=== PATIENT | female | born 1945 | race Caucasian/White ===

== ENCOUNTER → 2016-09-15 | Outpatient (CLI) | payer MEDICARE, OTHER ==
[~2016-09-15] MED LIST: ASPI325T PO; CELE200C PO; CENTTAB PO; HYDR-3580 PO; LEVO.125 PO; MAGN1TAB14 PO
[2016-09-15 09:55] LABS: HEMATOCRIT 40.1 % (35.0-46.0); MEAN CELL VOLUME 85.9 FL (80.0-100.0); MEAN CORPUSCULAR HEMOGLOBIN 29.3 PG (27.0-34.0); MEAN CORPUSCULAR HGB CONC 34.2 % (32.0-36.0); PLATELET COUNT 242 TH/MM3 (150-450); RED BLOOD COUNT 4.67 MIL/MM3 (4.00-5.30); RED CELL DISTRIBUTION WIDTH 13.5 % (11.6-17.2); REVIEW FLAG FINAL; WHITE BLOOD COUNT 5.3 TH/MM3 (4.0-11.0)
[2016-09-15 10:00] LABS: BLOOD, URINE NEG (NEG); GLUCOSE,URINE NEG (NEG); KETONE, URINE NEG (NEG); NITRITE,URINE NEG (NEG); URINE COLOR COLORLESS (YELLW/STRAW)
[2016-09-15 10:07] LABS: INTERNATIONAL NORMALIZED RATIO 0.9 RATIO; PROTHROMBIN TIME - PATIENT 10.1 SEC (9.8-11.6)
[2016-09-15 10:14] LABS: BICARBONATE 27.7 MEQ/L (21.0-32.0); POTASSIUM 4.3 MEQ/L (3.5-5.1)
[2016-09-15 10:17] LABS: COMMENT (UR) CULT NOT INDICATED; CULTURE IF INDICATED CULT NOT INDICATED
--- NOTE | 2016-09-15 18:53 | EKG ---
Date Performed: 09/15/2016 Time Performed: 08:51:49 PTAGE: 71 years EKG: Sinus rhythm Incomplete RBBB NO PREVIOUS TRACING DOCTOR: Krishna Darling Interpretating Date/Time 09/15/2016 18:52:15
== END ==
LOC: CPRE 08:18
PROVIDERS: ATTEND Orthopaedic Surgery
DX: Z01.810 Encounter for preprocedural cardiovascular examination (principal); Z01.812 Encounter for preprocedural laboratory examination; M17.12 Unilateral primary osteoarthritis, left knee; I10 Essential (primary) hypertension; M79.609 Pain in unspecified limb; I45.10 Unspecified right bundle-branch block
CPT/HCPCS: 36415; 80048; 81001; 85027; 85610; 85730; 93005

== ENCOUNTER 2016-09-22 14:24 | Inpatient (IN) | payer MEDICARE, OTHER ==
[~2016-09-22] VITALS: Ht 165.1 cm; Wt 68.5 kg
[~2016-09-22 14:24] MED LIST changes: -HYDR-3580 PO
[2016-09-25 05:48] VITALS: BP 144/95; PULSE 96; RESP 20; TEMP 98.1; O2SAT 99
[2016-09-25] MEDS ORDERED: EXPAREL PERI-ARTICULAR INJECTION (TOTAL VOL. 100 ML) P-ARTICULR SCH ×2 (06:00)
[2016-09-25] MEDS: CHLORHEXIDINE GLUCONATE 4% SOLN 120 ML BTL TOP SCH (06:00)
[2016-09-25] MEDS: SODIUM CHLORID 0.9% 500 ML IV SCH ×2 (06:00→22:40)
[2016-09-25] MEDS ORDERED: METOPROLOL TARTRATE 25 MG TAB PO PRN ×2 (06:00→11:00)
[2016-09-25] MEDS ORDERED: LACTATED RINGER'S 1000 ML IV SCH ×2 (06:00→09:26)
[2016-09-25] MEDS ORDERED: INSULIN HUMAN REGULAR 1,000 UNITS/10 ML VIAL SQ PRN ×2 (06:00→11:00)
[2016-09-25] MEDS ORDERED: POVIDONE IODINE 5% (ANTISEPSIS KIT) 4 APPLICATIONS EACH NARE ONE (06:00)
[2016-09-25] MEDS: TRANEXAMIC ACID INJ 685 MG in SODIUM CHLORIDE 0.9% INJ 100 ML IV SCH ×2 (06:00→07:01)
[2016-09-25] MEDS ORDERED: CHLORHEXIDINE GLUCONATE 2 % 1 PACK (2 CLOTHS) TOP ONE (06:00)
[2016-09-25] MEDS ORDERED: ceFAZolin 2 GM PREMIX 50 ML IV SCH (06:00)
[2016-09-25] MEDS ORDERED: GENTAMICIN SULFATE 80 MG/2 ML VIAL ONE (06:11)
[2016-09-25] MEDS ORDERED: MIDAZOLAM HCL 5 MG/5 ML VIAL ONE (06:21)
[2016-09-25] MEDS ORDERED: DEXAMETHASONE SOD PHOS 4 MG/ML VIAL ONE ×2 (06:30→06:45)
[2016-09-25] MEDS ORDERED: FAMOTIDINE 20 MG/2 ML VIAL ONE ×2 (06:31→06:45)
[2016-09-25] MEDS ORDERED: ACETAMINOPHEN 1000 MG/100 ML VIAL IV ONE (06:45)
[2016-09-25] MEDS ORDERED: fentaNYL CITRATE 250 MCG/5 ML AMP ONE (06:45)
[2016-09-25] MEDS ORDERED: BUPIVACAINE HCL PF 0.5% 30 ML VIAL NB ONE (09:06)
[2016-09-25] MEDS: LACTATED RINGER'S 1000 ML INJ 1,000 ML IV SCH ×2 (09:08→21:38)
[2016-09-25] MEDS ORDERED: ACETAMINOPHEN/HYDROcodone 325 MG/7.5 MG TAB PO PRN (09:15)
[2016-09-25] MEDS ORDERED: TRANEXAMIC ACID INJ 0 MG in SODIUM CHLORIDE 0.9% INJ 100 ML IV SCH (09:15)
[2016-09-25] MEDS ORDERED: MAGNESIUM HYDROXIDE SUSP 30 ML CUP PO PRN (09:15)
[2016-09-25] MEDS ORDERED: SODIUM CHLORIDE 0.9% FLUSH 5 ML FLUSH IVF PRN (09:15)
[2016-09-25] MEDS ORDERED: Post-op Orders (for Pharmacy) MISC XX ONE (09:15)
[2016-09-25] MEDS ORDERED: ONDANSETRON HCL 4 MG/2 ML VIAL IVP PRN (09:15)
[2016-09-25] MEDS ORDERED: SODIUM CHLORID 0.9% 500 ML IV SCH (09:26)
[2016-09-25] MEDS ORDERED: DO NOT ADM ANY ANTICOAGULANT DRUGS XX PRN (09:52)
--- NOTE | 2016-09-25 09:58 | HHI.FF ---
Face to Face Verification Diagnosis: (1) Status post total left knee replacement Physical Therapy Gait training Knee: Total knee, Protocol: Left, Gait training, Full weight bearing Left LE Weight Bearing: WB as tolerated Left LE Range of Motion: Active ROM Additional Instructions AROM, AAROM, PROM, PRE. ROM goal is 0 t0 135 degrees. ROM in the OR was 0 t0 145 degrees. Nursing Nursing: Dressing changes Dressing Changes: Daily dressing change, Coverderm/Primapore Additional Instructions Remove steristrips on postop day 14. I have seen patient Emeli Arreaga on 09/25/16. My clinical findings support the need for the requested home health care services because: Ltd mobility - disease progression Limited ability to care for self High risk of falls I certify that my clinical findings support that this patient is homebound because: Post-op weakness Unsteady gait/balance Unsafe to leave home unassisted Estela Duran MD (Charles) Sep 25, 2016 09:58
[2016-09-25] MEDS ORDERED: TRANEXAMIC ACID INJ 685 MG in SODIUM CHLORIDE 0.9% INJ 100 ML IV SCH (10:00)
[2016-09-25] MEDS ORDERED: *morphine SULFATE 8 MG/ML PERIprocedure ONLY ONE ×2 (10:21→10:35)
[2016-09-25] MEDS ORDERED: MORPHINE SULFATE 4 MG/ML INJ IV PUSH PRN (11:00)
[2016-09-25 12:00] VITALS: BP 109/64; PULSE 84; RESP 16; TEMP 95.1; O2SAT 97
[2016-09-25] MEDS ORDERED: PROPOFOL 200 MG/20 ML AMP IV ONE (12:00)
[2016-09-25] MEDS ORDERED: LACTATED RINGER'S 1000 ML INJ 1,000 ML IV ONE (12:00)
[2016-09-25] MEDS ORDERED: ONDANSETRON HCL 4 MG/2 ML VIAL IV PUSH ONE (12:00)
[2016-09-25] MEDS ORDERED: ePHEDrine/NS 25 MG/5 ML SYR IV ONE (12:00)
[2016-09-25] MEDS ORDERED: PHENYLEPH/NS 1000 MCG/10 ML SYR IV ONE (12:00)
[2016-09-25] MEDS ORDERED: CELECOXIB 200 MG CAP PO PRN (12:00)
--- NOTE | 2016-09-25 12:14 | PD.CONS ---
[facility] By Doctor Simone Duran Reason for Consult Medical Management Primary Care Physician Charles Siddiqui MD Diagnoses: History of Present Illness This is a pleasant 71 y/o Female with Hypothyroidism she states do not have any other pathology status post Left Total knee arthroplasty, no pain at this time. states she has bilateral knee OA had Physical Therapy and injections without improvement, scheduled two years ago for Right total knee arthroplasty and no this opportunity for Left Total knee arthroplasty. no complaint no nausea, vomit or diarrhea. Past Family Social History Allergies: Coded Allergies: No Known Allergies (Unverified , 09/25/16) Past Medical History Hypothyroidism OA of both knees. Past Surgical History Right total Knee arthroplasty Left total knee arthroplasty. Reported Medications Reported Meds & Active Scripts Active Reported Aspirin 325 Mg Tab 325 Mg PO DAILY Synthroid (Levothyroxine Sodium) 125 Mcg Tab 125 Mcg PO DAILY Celebrex (Celecoxib) 200 Mg Cap 200 Mg PO DAILY PRN Centrum Silver (Multiple Vitamins W/ Minerals) 1 Tab 1 Tab PO DAILY Magnesium 400 Mg Tab 400 Mg PO DAILY Active Ordered Medications Current Medications Medications (Trade) Dose Ordered Sig/Swathi Route Start Time Stop Time Status Last Admin Chlorhexidine Gluconate 1 applic 1 applic ONCE TOP 09/25/16 06:00 09/28/16 05:59 Tranexamic Acid 685 mg/Sodium Chloride 106.85 ml @ 200 mls/ hr ONCE IV 09/25/16 06:00 09/26/16 05:59 09/25/16 07:01 Tranexamic Acid 685 mg/Sodium Chloride 106.85 ml @ 200 mls/ hr ONCE IV 09/25/16 10:00 09/26/16 09:59 09/25/16 10:00 Bupivacaine Liposome 20 ml/ Sodium Chloride 100 ml @ 200 mls/hr ONCE P-ARTICULR 09/25/16 06:00 09/26/16 05:59 Lactated Ringer's 1,000 ml @ 30 mls/hr Q24H IV 09/25/16 06:00 09/25/16 05:45 Sodium Chloride 500 ml @ 30 mls/hr [id number] IV 09/25/16 06:00 09/26/16 05:59 (Lr 1000 ml Inj) 1,000 ml @ 80 mls/hr [id number] IV 09/25/16 09:08 09/25/16 09:08 (NS Flush) 2 ml UNSCH PRN IVF 09/25/16 09:15 IV Flush 2 ml 2 ml BID IVF 09/25/16 21:00 (Ancef Inj/NS Inj) 100 ml @ 200 mls/hr Q6H IV 09/25/16 14:00 09/26/16 02:29 (Morphine Inj) 4 mg Q3H PRN IV PUSH 09/25/16 11:00 ([place] 7.5-325 Mg) 1 tab Q4H PRN PO 09/25/16 09:15 ([place] 7.5-325 Mg) 2 tab Q4H PRN PO 09/25/16 09:15 (Toradol Inj) 15 mg Q6H IVP 09/25/16 12:00 09/27/16 06:01 (Zofran Inj) 4 mg Q6H PRN IVP 09/25/16 09:15 (Colace) 100 mg BID PO 09/26/16 21:00 (Ambien) 5 mg HS PRN PO 09/25/16 09:15 (Milk Of Magnmerly Liq) 30 ml DAILY PRN PO 09/25/16 09:15 (Aspirin) 325 mg DAILY PO 09/26/16 09:00 (CeleBREX) 200 mg DAILY PRN PO 09/25/16 12:00 Hold (Synthroid) 125 mcg DAILY@0600 PO 09/26/16 06:00 (Theragran Hematinic) 1 tab DAILY PO 09/26/16 09:00 (Mag-Ox) 400 mg DAILY@11 PO 09/26/16 11:00 Miscellaneous Information ALL NURSING DEPARTME... UNSCH PRN XX 09/25/16 09:52 09/26/16 09:51 Family History Father with Colon Cancer Mother with Bone Cancer Brother with Leukemia Social History Lives with her , do not Smoke but drinks wine daily. Physical Exam Vital Signs Vital Signs Date Time Temp Pulse Resp B/P Pulse Ox O2 Delivery O2 Flow Rate FiO2 09/25/16 10:45 97.8 82 15 116/63 97 Room Air 09/25/16 10:30 80 15 128/69 97 Room Air 09/25/16 10:15 77 15 137/70 97 Nasal Cannula 2 09/25/16 10:00 79 15 120/75 97 Nasal Cannula 2 09/25/16 09:45 93 15 122/69 96 Nasal Cannula 2 09/25/16 09:30 97.6 93 15 111/72 96 Nasal Cannula 2 09/25/16 06:05 99 Nasal Cannula 3 09/25/16 05:48 98.1 96 20 144/95 99 Physical Exam GENERAL: This is a well-nourished, well-developed patient, in no apparent distress. SKIN: No rashes, ecchymoses or lesions. Cool and dry. HEAD: Atraumatic. Normocephalic. No temporal or scalp tenderness. EYES: Pupils equal round and reactive. Extraocular motions intact. No scleral icterus. No injection or drainage. ENT: Nose without bleeding, purulent drainage or septal hematoma. Throat without erythema, tonsillar hypertrophy or exudate. Uvula midline. Airway patent. NECK: Trachea midline. No JVD or lymphadenopathy. Supple, nontender, no meningeal signs. CARDIOVASCULAR: Regular rate and rhythm without murmurs, gallops, or rubs. RESPIRATORY: Clear to auscultation. Breath sounds equal bilaterally. No wheezes , rales, or rhonchi. GASTROINTESTINAL: Abdomen soft, non-tender, nondistended. No hepato-splenomegaly , or palpable masses. No guarding. MUSCULOSKELETAL: Left Knee with Orthotics and Hemovac in place. NEUROLOGICAL: Awake and alert. Cranial nerves II through XII intact. Motor and sensory grossly within normal limits. Five out of 5 muscle strength in all muscle groups. Normal speech. Laboratory Laboratory Tests Test 09/25/16 05:50 Blood Type O NEGATIVE Antibody Screen NEGATIVE Blood Bank Comment Imaging No Imaging studies taken. Assessment and Plan Assessment and Plan 1. Hypothyroidism continue Hormonal replacement 2. End stage OA on both knees status post Left Total knee Arthroplasty, continue Pain medicine, [facility] for discharge. PT following 3. Right Total knee arthroplasty history of 2 years ago. DVT prophylaxis as per Orthopedic Surgery Code Status Full Code Discussed Condition With Patient and nurse in the room. Velasquez Rock MD Sep 25, 2016 12:14
[2016-09-25] MEDS: KETOROLAC TROMETHAMINE 30 MG/ML (IVP) VIAL IVP SCH ×3 (13:48→21:42)
[2016-09-25 14:25] VITALS: O2SAT 97
[2016-09-25] MEDS: MAGNESIUM HYDROXIDE SUSP 30 ML CUP PO SCH ×2 (15:50→21:00)
[2016-09-25 16:00] VITALS: BP 97/57; PULSE 78; RESP 16; TEMP 95.4; O2SAT 98
--- NOTE | 2016-09-25 16:15 | RADRPT ---
EXAM DATE/TIME: 09/25/2016 10:04 [place] COMPARISON: No previous studies available for comparison. INDICATIONS : Left knee post operative. MEDICAL HISTORY : None. SURGICAL HISTORY : None. Left knee replacement. ENCOUNTER: Initial ACUITY: 1 day PAIN SCORE: Non-responsive. LOCATION: Left knee FINDINGS: Two view examination of the left knee demonstrates a total knee arthroplasty. All 3 components are ap propriately positioned. No fracture. Suprapatellar drain is in place. CONCLUSION: Appropriate postoperative appearance of the left knee status post total arthroplasty. Derrell Cherry MD on September 25, 2016 at 16:13 Board Certified Radiologist. This report was verified electronically.
--- NOTE | 2016-09-25 16:19 | MP ---
cc: Isma COSTA. DATE OF SURGERY: 09/25/2016 PREOPERATIVE DIAGNOSIS Primary osteoarthritis, left knee. POSTOPERATIVE DIAGNOSIS Primary osteoarthritis, left knee. OPERATION PERFORMED Left total knee arthroplasty with [place] triathlon prosthesis. SURGEON Estela Costa MD [employer] Derrick Lees, CSFA ANESTHESIA Spinal with supplemental adductor canal block and local with Exparel. INDICATIONS AND FINDINGS This 71-year-old woman has had over 1 year of progressive worsening of left knee pain that has limited her such that her ambulation tolerance has gone from miles to about 1000 yards. She has stiffness in the joint and pain on motion. She has swelling. She has difficulty ascending and descending stairs as well as standing from a seated position and vice versa. She has pain when sitting for any length of time. Treatment has included anti-inflammatory agents, analgesics, activity modification exercises, viscosupplementation, intra-articular corticosteroid injections and ambulatory aids. Physical findings showed genu varum with medial laxity and crepitation on motion with palpable osteophytes. X-rays show loss of articular cartilage to [id number] on the medial compartment with osteophytes in the medial and patellofemoral compartment, to a lesser extent lateral compartment. Operative findings were consistent with the radiographic findings with there being loss of articular cartilage in all surfaces but predominantly in the medial compartment. There are tricompartmental osteophytes. The prosthesis used was a Mack triathlon prosthesis with the femur being a porous coated size 4 cruciate-retaining left, the tibia being a Tritanium baseplate size 5 with a cruciate-retaining 9 mm spacer X3 polyethylene and the patella being a Tritanium backed asymmetric patella size 35 mm. PROCEDURE The patient had an adductor canal block carried out preoperatively. She was then transferred to the clean-air operating suite where a spinal anesthetic was administered. She was placed in the supine position on the operating table with a bolster under the left hip and a tourniquet about the left thigh. The limb was then prepped with alcohol, Hibiclens and Chloraprep and draped in the usual manner with the knee draped free. After an appropriate time-out procedure had been carried out, local anesthesia was administered in the incision site which had been previously marked. Anterior incision was then made from about three fingerbreadths above the superior medial pole of patella down to the tibial tubercle. The incision was deepened through subcutaneous tissues to the retinacular structures which were exposed medially and laterally. A medial retinacular incision was then made from the superomedial pole of the patella down to the tibial tubercle. This was then carried up to the end of the quadriceps tendon, splitting it longitudinally in the medial one-third. Medial and lateral dissection was carried out. The infrapatellar fat pad was debulked. The posterior surface of the patella was excised with the oscillating saw, taking care to prevent injury to tendinous structures. A patellar protector was applied to this. The knee was then repositioned with the patella in the lateral gutter. Whitesides line was marked. Fenestration was made in the distal end of the femur. A distal femoral cutting guide and jig were then assembled for a 5 degree 8-mm cut and stabilized with pins. The jig was removed. The distal femoral cut was completed with the oscillating saw. The sizing guide was then positioned along Whitesides line and the epicondylar axis. This was stabilized with pins. The size determined to be a size 4 femur. The four-in-one cutting block was then positioned in place and re-verified as the proper size. The distal femoral cut was then made with the oscillating saw, taking care to prevent injury to neurovascular and ligamentous structures. Osteophytes were trimmed. Medial and lateral meniscectomies were completed. The intermedullary referencing guide for the tibia was then inserted. The depth of cut was verified off of the lateral side. Cutting block was stabilized with pins. The jig was removed. The proximal tibial cut was then completed with the oscillating saw, taking care to prevent injury to neurovascular and ligamentous structures. The size of the tibia was determined to be a size 5. Local anesthesia was administered throughout the knee. The size 5 tibial spacer which was 9 mm was chosen. This was then placed and the tibial trial prosthesis was positioned in place. The femoral trial prosthesis was impacted into place. With the knee in extension the tibial alignment was then repositioned. A tibial baseplate trial was stabilized with pins. The patella drill holes were made for the 35 mm patella. The patella trial was positioned in place. The knee was taken through a range of motion which was 0 degrees extension to 145 degrees of flexion with excellent stability throughout the entire range and excellent tracking of the patella. The patella trial was removed. The femoral drill holes were made followed by removal of the femoral trial. Tibial spacer was removed. The tibial punch was impacted through the guide after placement of bone graft into the tibia and femur. The tibial trial was removed. The tibial drill guide was positioned. Drill holes were made. The cut ends of bone were cleaned with pulse lavage. The posterior capsule had been anesthetized with Exparel carefully along with medial and lateral portions of the joint prior to placement of the trials. The tibial baseplate was impacted into place and seated appropriately. The 9-mm spacer was inserted. The femoral component was impacted into place. This appeared to be appropriate. The patella component was positioned in place and stabilized with the patella vice. The drains were brought out the superolateral aspect of the suprapatellar pouch. The knee was taken through a range of motion which was easily 0 degrees extension to 140 degrees of flexion. The stability was excellent throughout the entire range of motion. After injection of the remainder of the Exparel throughout the capsular structures and subcutaneous tissues, the wound was then closed in layers using #0 Vicryl interrupted [id number] sutures for the capsular and retinacular structures, 2-0 Vicryl interrupted simple sutures with buried knots for the subcutaneous tissues and 4-0 Monocryl continuous subcuticular closure for the skin. The wound was dressed with Steri-Strips followed by dry dressing, sterile Sof-Rol, cooling pad, further sterile Sof-Rol and Shahzad bandages from the base of the toe to midthigh. The patient was then transferred from the operating room to the recovery room in satisfactory condition having tolerated the procedure well. COUNTS Counts were correct. SPECIMENS None. ESTIMATED BLOOD LOSS 325 mL. MD PANCHO Soria/POONAM /9:20 AM /3:57 PM
[2016-09-25 20:19] VITALS: BP 107/64; PULSE 86; RESP 19; TEMP 96.9; O2SAT 97
[2016-09-25] MEDS: SENNOSIDES 8.6 MG TAB PO SCH (21:00)
[2016-09-25] MEDS ORDERED: ASPIRIN EC 81 MG TABEC PO SCH (21:00)
[2016-09-25] MEDS: SODIUM CHLORIDE 0.9% FLUSH 5 ML FLUSH IVF SCH (21:42)
[2016-09-25] MEDS: ZOLPIDEM TARTRATE 5 MG TAB PO PRN (22:00)
[2016-09-26] VITALS (7 sets, daily range): BP systolic 99–136; BP diastolic 55–77; PULSE 74–86; RESP 16–18; TEMP 96.4–98; O2SAT 97–99
[2016-09-26] MEDS: KETOROLAC TROMETHAMINE 30 MG/ML (IVP) VIAL IVP SCH ×4 (02:46→20:38)
[2016-09-26] MEDS: LEVOTHYROXINE SODIUM 125 MCG TAB PO SCH (05:42)
[2016-09-26] MEDS: CHLORHEXIDINE GLUCONATE 4% SOLN 120 ML BTL TOP SCH (06:00)
[2016-09-26 06:07] LABS: HEMATOCRIT 28.5 % (35.0-46.0); REVIEW FLAG FINAL
--- NOTE | 2016-09-26 06:20 | PD.ORT.PN ---
Subjective Post Op Day #: 1 Subjective Remarks Jose Daniel has had almost no pain. Range of Motion 0 to 92 degrees. Distance Walked 25, then 120 feet. Objective Vitals Vital Signs Date Time Temp Pulse Resp B/P Pulse Ox O2 Delivery O2 Flow Rate FiO2 09/26/16 04:22 97.6 76 18 108/60 99 09/26/16 00:27 96.9 83 17 99/56 98 09/25/16 20:19 96.9 86 19 107/64 97 09/25/16 19:51 21 09/25/16 19:28 Room Air 09/25/16 16:00 95.4 78 16 97/57 98 09/25/16 14:25 97 09/25/16 12:00 95.1 84 16 109/64 97 09/25/16 10:45 97.8 82 15 116/63 97 Room Air 09/25/16 10:30 80 15 128/69 97 Room Air 09/25/16 10:15 77 15 137/70 97 Nasal Cannula 2 09/25/16 10:00 79 15 120/75 97 Nasal Cannula 2 09/25/16 09:45 93 15 122/69 96 Nasal Cannula 2 09/25/16 09:30 97.6 93 15 111/72 96 Nasal Cannula 2 I/O 09/25/16 09/25/16 09/25/16 09/26/16 09/26/16 09/26/16 07:00 15:00 23:00 07:00 15:00 23:00 Intake Total 2228 ml 480 ml Output Total 1050 ml 160 ml Balance 1178 ml 320 ml Intake Oral 480 ml 480 ml IV Total 448 ml Other 1300 ml Output Urine Total 600 ml Drainage Total 150 ml 160 ml Estimated Blood Loss 300 ml # Voids 2 2 # Bowel Movements 0 Result Diagram: 09/26/16 0515 Imaging Last 72 hours Impressions Knee X-Ray 09/25/16 0000 Signed Impressions: Service Date/Time: Sunday, September 25, 2016 10:04 - CONCLUSION: Appropriate postoperative appearance of the left knee status post total arthroplasty. Derrell Cherry MD Objective Remarks She is resting comfortably, supine in bed in the CPM. The neurovascular status is intact. The dressing is dry and intact. Assessment & Plan Ortho Post Op Day #: 1 Problem List: (1) Status post total left knee replacement Plan: Continue postop care and PT. Assessment and Plan Condition: Good. Orthopaedically stable. DVT prophylaxis: TEDs, sequentials, ASA. Discharge plans: Home with [facility]. Has appointment. Estela Duran MD (Charles) Sep 26, 2016 06:20
[2016-09-26 06:34] LABS: BICARBONATE 30.2 MEQ/L (21.0-32.0); MAGNESIUM 2.1 MG/DL (1.5-2.5); POTASSIUM 4.2 MEQ/L (3.5-5.1)
--- NOTE | 2016-09-26 08:10 | HHI.PR ---
Subjective Remarks This is a pleasant 71 y/o Female with Hypothyroidism she states do not have any other pathology status post Left Total knee arthroplasty, no pain at this time. states she has bilateral knee OA had Physical Therapy and injections without improvement, scheduled two years ago for Right total knee arthroplasty and no this opportunity for Left Total knee arthroplasty. no complaint no nausea, vomit or diarrhea. 09/26 Seen in her bedroom no complaint, has Hemovac in place still draining blood. probable will be discharged tomorrow by her attending. No Nausea, vomit or diarrhea. Objective Vital Signs Date Time Temp Pulse Resp B/P Pulse Ox O2 Delivery O2 Flow Rate FiO2 09/26/16 04:22 97.6 76 18 108/60 99 09/26/16 00:27 96.9 83 17 99/56 98 09/25/16 20:19 96.9 86 19 107/64 97 09/25/16 19:51 21 09/25/16 19:28 Room Air 09/25/16 16:00 95.4 78 16 97/57 98 09/25/16 14:25 97 09/25/16 12:00 95.1 84 16 109/64 97 09/25/16 10:45 97.8 82 15 116/63 97 Room Air 09/25/16 10:30 80 15 128/69 97 Room Air 09/25/16 10:15 77 15 137/70 97 Nasal Cannula 2 09/25/16 10:00 79 15 120/75 97 Nasal Cannula 2 09/25/16 09:45 93 15 122/69 96 Nasal Cannula 2 09/25/16 09:30 97.6 93 15 111/72 96 Nasal Cannula 2 I/O 09/25/16 09/25/16 09/25/16 09/26/16 09/26/16 09/26/16 07:00 15:00 23:00 07:00 15:00 23:00 Intake Total 2228 ml 480 ml 480 ml Output Total 1050 ml 160 ml 160 ml Balance 1178 ml 320 ml 320 ml Intake Oral 480 ml 480 ml 480 ml IV Total 448 ml Other 1300 ml Output Urine Total 600 ml Drainage Total 150 ml 160 ml 160 ml Estimated Blood Loss 300 ml # Voids 2 2 2 # Bowel Movements 0 1 Result Diagram: 09/26/16 0515 09/26/16 0515 Imaging Last Impressions Knee X-Ray 09/25/16 0000 Signed Impressions: Service Date/Time: Sunday, September 25, 2016 10:04 - CONCLUSION: Appropriate postoperative appearance of the left knee status post total arthroplasty. Derrell Cherry MD Procedures Left Total knee Arthroplasty 09/25/16 Other Results Laboratory Tests Test 09/25/16 09/26/16 05:50 05:15 Blood Type O NEGATIVE Antibody Screen NEGATIVE Blood Bank Comment Hemoglobin 9.4 GM/DL Hematocrit 28.5 % Sodium Level 142 MEQ/L Potassium Level 4.2 MEQ/L Chloride Level 107 MEQ/L Carbon Dioxide Level 30.2 MEQ/L Anion Gap 5 MEQ/L Blood Urea Nitrogen 22 MG/DL Creatinine 0.79 MG/DL Estimat Glomerular Filtration 72 ML/MIN Rate Random Glucose 111 MG/DL Calcium Level 8.6 MG/DL Magnesium Level 2.1 MG/DL Objective Remarks GENERAL: This is a well-nourished, well-developed patient, in no apparent distress. SKIN: No rashes, ecchymoses or lesions. Cool and dry. HEAD: Atraumatic. Normocephalic. No temporal or scalp tenderness. EYES: Pupils equal round and reactive. Extraocular motions intact. No scleral icterus. No injection or drainage. ENT: Nose without bleeding, purulent drainage or septal hematoma. Throat without erythema, tonsillar hypertrophy or exudate. Uvula midline. Airway patent. NECK: Trachea midline. No JVD or lymphadenopathy. Supple, nontender, no meningeal signs. CARDIOVASCULAR: Regular rate and rhythm without murmurs, gallops, or rubs. RESPIRATORY: Clear to auscultation. Breath sounds equal bilaterally. No wheezes , rales, or rhonchi. GASTROINTESTINAL: Abdomen soft, non-tender, nondistended. No hepato-splenomegaly , or palpable masses. No guarding. MUSCULOSKELETAL: Left Knee with Orthotics and Hemovac in place. NEUROLOGICAL: Awake and alert. Cranial nerves II through XII intact. Motor and sensory grossly within normal limits. Five out of 5 muscle strength in all muscle groups. Normal speech. Medications and IVs Current Medications Medications (Trade) Dose Ordered Sig/Swathi Route Start Time Stop Time Status Last Admin Chlorhexidine Gluconate 1 applic 1 applic ONCE TOP 09/25/16 06:00 09/28/16 05:59 Tranexamic Acid 685 mg/Sodium Chloride 106.85 ml @ 200 mls/ hr ONCE IV 09/25/16 10:00 09/26/16 09:59 09/25/16 10:00 (Lr 1000 ml Inj) 1,000 ml @ 80 mls/hr [id number] IV 09/25/16 09:08 09/25/16 09:08 (NS Flush) 2 ml UNSCH PRN IVF 09/25/16 09:15 (NS Flush) 2 ml BID IVF 09/25/16 21:00 09/25/16 21:42 (Morphine Inj) 4 mg Q3H PRN IV PUSH 09/25/16 11:00 ([place] 7.5-325 Mg) 1 tab Q4H PRN PO 09/25/16 09:15 ([place] 7.5-325 Mg) 2 tab Q4H PRN PO 09/25/16 09:15 (Zofran Inj) 4 mg Q6H PRN IVP 09/25/16 09:15 (Colace) 100 mg BID PO 09/26/16 21:00 (Ambien) 5 mg HS PRN PO 09/25/16 09:15 09/25/16 22:00 (Aspirin) 325 mg DAILY PO 09/26/16 09:00 (CeleBREX) 200 mg DAILY PRN PO 09/25/16 12:00 Hold (Synthroid) 125 mcg DAILY@0600 PO 09/26/16 06:00 09/26/16 05:42 (Theragran Hematinic) 1 tab DAILY PO 09/26/16 09:00 (Mag-Ox) 400 mg DAILY@11 PO 09/26/16 11:00 Miscellaneous Information ALL NURSING DEPARTME... UNSCH PRN XX 09/25/16 09:52 09/26/16 09:51 (Milk Of Magnesia Liq) 30 ml BID PO 09/25/16 15:50 (Senokot) 17.2 mg HS PO 09/25/16 21:00 (Toradol Inj) 15 mg Q6H IVP 09/25/16 20:00 09/27/16 08:01 09/26/16 02:46 A/P Assessment and Plan 1. Hypothyroidism continue Hormonal replacement 2. End stage OA on both knees status post Left Total knee Arthroplasty 09/25/16, continue Pain medicine, [employer] for discharge. PT following 3. Right Total knee arthroplasty history of 2 years ago. DVT prophylaxis as per Orthopedic Surgery Code Status Full Code Discussed Condition With Patient and nurse in the room. Discharge Planning Expected for tomorrow going home with [facility] for PT. Velasquez Rock MD Sep 26, 2016 08:10
[2016-09-26] MEDS: MAGNESIUM HYDROXIDE SUSP 30 ML CUP PO SCH ×2 (09:00→20:39)
[2016-09-26] MEDS: SODIUM CHLORIDE 0.9% FLUSH 5 ML FLUSH IVF SCH ×2 (09:29→20:38)
[2016-09-26] MEDS: ASPIRIN 325 MG TAB PO SCH (09:30)
[2016-09-26] MEDS: MULTIVITAMIN HEMATINIC THERAPEUTIC TAB PO SCH (09:30)
[2016-09-26] MEDS: LACTATED RINGER'S 1000 ML INJ 1,000 ML IV SCH ×2 (10:08→20:39)
[2016-09-26] MEDS: MAGNESIUM OXIDE 400 MG TAB PO SCH (12:35)
[2016-09-26] MEDS: ACETAMINOPHEN/HYDROcodone 325 MG/7.5 MG TAB PO PRN ×2 (19:01→22:55)
[2016-09-26] MEDS: SENNOSIDES 8.6 MG TAB PO SCH (20:39)
[2016-09-26] MEDS: DOCUSATE SODIUM 100 MG CAP PO SCH (20:39)
[2016-09-26] MEDS: ZOLPIDEM TARTRATE 5 MG TAB PO PRN (22:37)
[2016-09-27 04:22] VITALS: BP 98/63; PULSE 87; RESP 20; TEMP 97.3; O2SAT 95
[2016-09-27] MEDS: KETOROLAC TROMETHAMINE 30 MG/ML (IVP) VIAL IVP SCH ×2 (04:22→08:46)
[2016-09-27] MEDS: ACETAMINOPHEN/HYDROcodone 325 MG/7.5 MG TAB PO PRN ×3 (04:22→15:25)
[2016-09-27] MEDS: LEVOTHYROXINE SODIUM 125 MCG TAB PO SCH (04:22)
[2016-09-27] MEDS: CHLORHEXIDINE GLUCONATE 4% SOLN 120 ML BTL TOP SCH (06:00)
[2016-09-27 06:28] LABS: HEMATOCRIT 25.4 % (35.0-46.0); REVIEW FLAG FINAL
--- NOTE | 2016-09-27 07:20 | PD.ORT.PN ---
Subjective Post Op Day #: 2 Subjective Remarks She still has had almost no pain. She has done well with PT. Range of Motion -7 to 90 degrees. Distance Walked 400 feet. Objective Vitals Vital Signs Date Time Temp Pulse Resp B/P Pulse Ox O2 Delivery O2 Flow Rate FiO2 09/27/16 04:22 97.3 87 20 98/63 95 09/26/16 22:48 96.4 81 16 111/71 98 09/26/16 20:20 97.4 81 18 106/55 97 09/26/16 19:19 Room Air 09/26/16 16:30 98.0 74 16 130/77 97 09/26/16 12:30 97.1 79 16 129/70 98 09/26/16 10:00 Room Air 09/26/16 08:02 96.7 86 16 136/68 99 I/O 09/26/16 09/26/16 09/26/16 09/27/16 09/27/16 09/27/16 07:00 15:00 23:00 07:00 15:00 23:00 Intake Total 480 ml 980 ml 480 ml 360 ml Output Total 160 ml 120 ml 70 ml 30 ml Balance 320 ml 860 ml 410 ml 330 ml Intake Oral 480 ml 980 ml 480 ml 360 ml Drainage Total 160 ml 120 ml 70 ml 30 ml # Voids 2 5 3 2 # Bowel Movements 1 1 0 0 Result Diagram: 09/27/16 0526 09/26/16 0515 Imaging Last 72 hours Impressions Knee X-Ray 09/25/16 0000 Signed Impressions: Service Date/Time: Sunday, September 25, 2016 10:04 - CONCLUSION: Appropriate postoperative appearance of the left knee status post total arthroplasty. Derrell Cherry MD Objective Remarks She is resting comfortably, supine in bed in the CPM. The neurovascular status is intact. The dressing is dry and intact. Assessment & Plan Ortho Post Op Day #: 2 Problem List: (1) Status post total left knee replacement Plan: Continue postop care and PT. Assessment and Plan Condition: Good. Orthopaedically stable. DVT prophylaxis: TEDs, sequentials, ASA. Discharge plans: Home with [facility]. Has appointment. Rx: [place] 7.5/325 Estela Duran MD (Charles) Sep 27, 2016 07:20
[2016-09-27 08:00] VITALS: BP 115/56; PULSE 96; RESP 16; TEMP 96.7; O2SAT 100
[2016-09-27] MEDS ORDERED: HYDR-3580 PO (08:09)
[2016-09-27] MEDS: SODIUM CHLORIDE 0.9% FLUSH 5 ML FLUSH IVF SCH (08:46)
[2016-09-27] MEDS: MULTIVITAMIN HEMATINIC THERAPEUTIC TAB PO SCH (08:47)
[2016-09-27] MEDS: MAGNESIUM HYDROXIDE SUSP 30 ML CUP PO SCH (08:47)
[2016-09-27] MEDS: ASPIRIN 325 MG TAB PO SCH (08:47)
[2016-09-27] MEDS: DOCUSATE SODIUM 100 MG CAP PO SCH (08:47)
[2016-09-27 09:17] VITALS: O2SAT 94
--- NOTE | 2016-09-27 09:20 | HHI.PR ---
Subjective Remarks This is a pleasant 71 y/o Female with Hypothyroidism she states do not have any other pathology status post Left Total knee arthroplasty, no pain at this time. states she has bilateral knee OA had Physical Therapy and injections without improvement, scheduled two years ago for Right total knee arthroplasty and no this opportunity for Left Total knee arthroplasty. no complaint no nausea, vomit or diarrhea. 09/26 Seen in her bedroom no complaint, has Hemovac in place still draining blood. probable will be discharged tomorrow by her attending. No Nausea, vomit or diarrhea. 09/27 seen in her bedroom and discussed with nurse Miss Luzmaria bravotashi to discharge from medicine standpoint, no nausea, vomit or diarrhea. Objective Vital Signs Date Time Temp Pulse Resp B/P Pulse Ox O2 Delivery O2 Flow Rate FiO2 09/27/16 09:17 94 21 09/27/16 04:22 97.3 87 20 98/63 95 09/26/16 22:48 96.4 81 16 111/71 98 09/26/16 20:20 97.4 81 18 106/55 97 09/26/16 19:19 Room Air 09/26/16 16:30 98.0 74 16 130/77 97 09/26/16 12:30 97.1 79 16 129/70 98 09/26/16 10:00 Room Air I/O 09/26/16 09/26/16 09/26/16 09/27/16 09/27/16 09/27/16 07:00 15:00 23:00 07:00 15:00 23:00 Intake Total 480 ml 980 ml 480 ml 360 ml Output Total 160 ml 120 ml 70 ml 30 ml Balance 320 ml 860 ml 410 ml 330 ml Intake Oral 480 ml 980 ml 480 ml 360 ml Drainage Total 160 ml 120 ml 70 ml 30 ml # Voids 2 5 3 2 # Bowel Movements 1 1 0 0 Result Diagram: 09/27/16 0526 09/26/16 0515 Imaging Last Impressions Knee X-Ray 09/25/16 0000 Signed Impressions: Service Date/Time: Sunday, September 25, 2016 10:04 - CONCLUSION: Appropriate postoperative appearance of the left knee status post total arthroplasty. Derrell Cherry MD Procedures Left Total knee Arthroplasty 09/25/16 Other Results Laboratory Tests Test 09/25/16 09/26/16 09/27/16 05:50 05:15 05:26 Blood Type O NEGATIVE Antibody Screen NEGATIVE Blood Bank Comment Sodium Level 142 MEQ/L Potassium Level 4.2 MEQ/L Chloride Level 107 MEQ/L Carbon Dioxide Level 30.2 MEQ/L Anion Gap 5 MEQ/L Blood Urea Nitrogen 22 MG/DL Creatinine 0.79 MG/DL Estimat Glomerular Filtration 72 ML/MIN Rate Random Glucose 111 MG/DL Calcium Level 8.6 MG/DL Magnesium Level 2.1 MG/DL Hemoglobin 8.6 GM/DL Hematocrit 25.4 % Objective Remarks GENERAL: This is a well-nourished, well-developed patient, in no apparent distress. SKIN: No rashes, ecchymoses or lesions. Cool and dry. HEAD: Atraumatic. Normocephalic. No temporal or scalp tenderness. EYES: Pupils equal round and reactive. Extraocular motions intact. ENT: Nose without bleeding, purulent drainage or septal hematoma. NECK: Trachea midline. No JVD or lymphadenopathy. Supple, nontender, no meningeal signs. CARDIOVASCULAR: Regular rate and rhythm without murmurs, gallops, or rubs. RESPIRATORY: Clear to auscultation. Breath sounds equal bilaterally. No wheezes , rales, or rhonchi. GASTROINTESTINAL: Abdomen soft, non-tender, nondistended. No hepato-splenomegaly , or palpable masses. No guarding. MUSCULOSKELETAL: Left Knee with Orthotics and Hemovac in place. NEUROLOGICAL: Awake and alert. Cranial nerves II through XII intact. Medications and IVs Current Medications Medications (Trade) Dose Ordered Sig/Swathi Route Start Time Stop Time Status Last Admin Chlorhexidine Gluconate 1 applic 1 applic ONCE TOP 09/25/16 06:00 09/28/16 05:59 (Lr 1000 ml Inj) 1,000 ml @ 80 mls/hr [id number] IV 09/25/16 09:08 09/25/16 09:08 (NS Flush) 2 ml UNSCH PRN IVF 09/25/16 09:15 (NS Flush) 2 ml BID IVF 09/25/16 21:00 09/27/16 08:46 (Morphine Inj) 4 mg Q3H PRN IV PUSH 09/25/16 11:00 (Beulah 7.5-325 Mg) 1 tab Q4H PRN PO 09/25/16 09:15 09/27/16 04:22 (Beulah 7.5-325 Mg) 2 tab Q4H PRN PO 09/25/16 09:15 09/26/16 12:35 (Zofran Inj) 4 mg Q6H PRN IVP 09/25/16 09:15 (Colace) 100 mg BID PO 09/26/16 21:00 09/27/16 08:47 (Ambien) 5 mg HS PRN PO 09/25/16 09:15 09/26/16 22:37 (Aspirin) 325 mg DAILY PO 09/26/16 09:00 09/27/16 08:47 (CeleBREX) 200 mg DAILY PRN PO 09/25/16 12:00 Hold (Synthroid) 125 mcg DAILY@0600 PO 09/26/16 06:00 09/27/16 04:22 (Theragran Hematinic) 1 tab DAILY PO 09/26/16 09:00 09/27/16 08:47 (Mag-Ox) 400 mg DAILY@11 PO 09/26/16 11:00 09/26/16 12:35 (Milk Of Magnmerly Liq) 30 ml BID PO 09/25/16 15:50 (Senokot) 17.2 mg HS PO 09/25/16 21:00 A/P Assessment and Plan 1. Hypothyroidism continue Hormonal replacement 2. End stage OA on both knees status post Left Total knee Arthroplasty 09/25/16, continue Pain medicine, S[facility] for discharge. PT following 3. Right Total knee arthroplasty history of 2 years ago. DVT prophylaxis as per Orthopedic Surgery Code Status Full Code Discussed Condition With Patient and nurse in the room. Discharge Planning Okay to discharge today as per Medicine. Velasquez Rock MD Sep 27, 2016 09:20 Expected for tomorrow going home with [facility] for PT. Velasquez Rock MD Sep 27, 2016 09:20
[2016-09-27] MEDS: MAGNESIUM OXIDE 400 MG TAB PO SCH (10:35)
[2016-09-27] MEDS: LACTATED RINGER'S 1000 ML INJ 1,000 ML IV SCH (11:08)
[2016-09-27 12:00] VITALS: BP 135/66; PULSE 81; RESP 16; TEMP 98.2; O2SAT 99
== END 2016-09-27 15:41 | disposition home health service (06) | DRG 470 ==
LOC: HSDI 09-25 05:19 → N06A 09-25 11:03
PROVIDERS: ADMIT Orthopaedic Surgery; ATTEND Orthopaedic Surgery
PROC: 3E0T3CZ (ICD-10-PCS; 2016-09-25)
PROC: 0SRD0JA Replacement of Left Knee Joint with Synthetic Substitute, Uncemented, Open Approach (ICD-10-PCS; principal; 2016-09-25 06:47)
DX: M17.12 Unilateral primary osteoarthritis, left knee (principal); E03.9 Hypothyroidism, unspecified; M21.162 Varus deformity, not elsewhere classified, left knee; Z96.651 Presence of right artificial knee joint
CPT/HCPCS: 73560; 80048; 83735; 85014; 85018; 86850; 86900; 86901; 94150; C1776; J0131; J0690; J1100; J1580; J1885; J2250; J2270; J2370; J2405; J3010; J7120